=== PATIENT | male | born 1955 | race Two or more races ===

== ENCOUNTER 2021-03-14 16:03 | Emergency (ER) | payer OTHER, MEDICAID ==
[~2021-03-14] VITALS: Ht 175.3 cm; Wt 74.8 kg
[2021-03-14] MEDS ORDERED: HYDROmorphone HCL 2 MG/ML VL IM ONE (18:15)
[2021-03-14] MEDS ORDERED: ONDANSETRON HCL 4 MG/2 ML VIAL IM ONE (18:15)
[2021-03-14 21:58] VITALS: BP 138/90
== END 2021-03-14 22:09 | disposition home or self-care (01) ==
LOC: ER 16:03
DX: M54.50 Low back pain, unspecified (principal)
CPT/HCPCS: 72131; 96372; 99284; J1170; J2405